=== PATIENT | female | born 1955 | race Two or more races ===

== ENCOUNTER 2023-07-12 05:39 | Day surgery (SDC) | payer OTHER ==
[~2023-07-12] VITALS: Ht 157.5 cm; Wt 65.3 kg
[~2023-07-12 05:39] MED LIST: COZAAR100 MG PO; SYNTHROID175 MCG PO
== END 2023-07-12 12:40 | disposition home or self-care (01) ==
LOC: CIR.AMB 05:39
PROVIDERS: ATTEND Surgery
DX: K80.10 Calculus of gallbladder with chronic cholecystitis without obstruction (principal); K43.9 Ventral hernia without obstruction or gangrene; Z20.822 Contact with and (suspected) exposure to COVID-19; I10 Essential (primary) hypertension; E03.9 Hypothyroidism, unspecified